=== PATIENT | female | born 1945 | race Caucasian/White ===

== ENCOUNTER 2019-03-22 22:57 | Emergency (ER) | payer OTHER, MEDICARE ==
[2019-03-22 23:02] VITALS: BMI 31.2
--- NOTE | 2019-03-22 23:08 | PDOC ---
History of Present Illness - General Chief Complaint: Pain Stated Complaint: LEFT WRIST SWELLING Time Seen by Provider: 03/22/19 23:02 History Source: Patient Exam Limitations: No Limitations - History of Present Illness Initial Comments: 03/22/19 23:20 This is a 73-year-old female who comes in with her for evaluation of left wrist pain. Patient said that her left wrist has been mildly swollen and bothering her for a couple weeks however this evening it suddenly became much worse, more painful with erythema and increase in warmth. Patient went to an urgent care center and was sent to the ED to rule out infection as she is a diabetic. Allergies: as per nursing notes Past Medical History: none Social history: Lives with family. No smoking. No alcohol. No illicit drugs. Surgical history: None General: No fevers or chills, no weakness, no weight loss HEENT: No change in vision. No sore throat,. No ear pain CardioVascular: no chest discomfort. No shortness of breath Respiratory:No cough, or wheezing. Gastrointestinal: no nausea, vomiting, diarrhea or constipation, No rectal bleeding Genitourinary: No dysuria, hematuria, or frequency Musculoskeletal: No joint or muscle pain or swelling Neurologic: No headache, vertigo, dizziness or loss of consciousness Psychiatric: nor depression Skin: No rashes or easy bruising Endocrine: no increased thirst or abnormal weight change Allergic: no skin or latex allergy All other systems reviewed and normal GENERAL: The patient is awake, alert, and fully oriented, in no acute distress. HEAD: Normal with no signs of trauma. EYES: Pupils equal, round and reactive to light, extraocular movements intact, sclera anicteric, conjunctiva clear. EXTREMITIES:atraumatic, Normal range of motion, no edema. Left wrist: There is some increase in warmth with some erythema and swelling. There is marked decreased range of motion secondary to pain and swelling. Neurovascular is intact. NEUROLOGICAL: Normal speech, normal gait. PSYCH: Normal mood, normal affect. SKIN: Warm, Dry, normal turgor, no rashes or lesions noted. 03/23/19 02:21 X-ray no acute pathology Assessment and plan: This is a 73-year-old female who comes in with left wrist pain. Patient denies any trauma. Patient's x-rays negative for any acute pathology. Patient given Toradol and started on antibiotics. Patient given Banken Zosyn here in the emergency department. Patient went in splint and given Dr. kimbrough to follow-up with. Patient discharged home Past History - Past Medical History Allergies/Adverse Reactions: Allergies Allergy/AdvReac Type Severity Reaction Status Date / Time Sulfa (Sulfonamide Allergy Severe Hives Verified 03/22/19 22:58 Antibiotics) COPD: No Diabetes: Yes HTN: Yes Thyroid Disease: Yes (Hypothyroid) - Suicide/Smoking/Psychosocial Hx Smoking History: Never smoked Have you smoked in the past 12 months: No Information on smoking cessation initiated: No Hx Alcohol Use: No Drug/Substance Use Hx: No *Physical Exam - Vital Signs Last Vital Signs Temp Pulse Resp BP Pulse Ox 97.7 F 87 18 135/74 99 03/22/19 22:59 03/22/19 22:59 03/22/19 22:59 03/22/19 22:59 03/22/19 22:59 ED Treatment Course - LABORATORY CBC & Chemistry Diagram: 03/23/19 00:30 03/23/19 00:30 *DC/Admit/Observation/Transfer Diagnosis at time of Disposition: Wrist pain, left - Discharge Dispostion Disposition: HOME Condition at time of disposition: Good Decision to Admit order: No - Referrals Referrals: Brandon Carrasco MD [Staff Physician] - - Patient Instructions Additional Instructions: For the pain take Tylenol or Motrin as directed on the bottle. Alternatively U can take Aleve 2 tablets twice a day if needed. For the infection take clindamycin 1 tablet twice a day for 7 days Wear the splint for additional comfort and follow-up with the orthopedist in the morning, Return to the emergency department immediately with ANY new, persistent or worsening symptoms. Continue any medications as previously prescribed by your physician. You should follow up with your primary doctor as soon as possible regarding today's emergency department visit. . Please make sure your doctor reviews the results of your emergency evaluation. Thank you for coming to the Emergency Department today for your care. It was a pleasure to see you today. Please note that your evaluation is INCOMPLETE until you follow-up with your doctor. - Post Discharge Activity Forms/Work/School Notes: Back to Work
[2019-03-22] MEDS ORDERED: KETOROLAC TROMETHAMINE 30 MG/1 ML VIAL IVPUSH ONE (23:09)
[2019-03-23] MEDS ORDERED: PIPERACILLIN/TAZOB 3.375 GM 3.375 GM in DEXTROSE 5%-WATER - 50 ML IVPB ONE (00:02)
[2019-03-23] MEDS ORDERED: VANCOMYCIN 1 GM in D5W (PRE-DOCKED) 1,000 MG/250 ML IVPB ONE (00:41)
[2019-03-23] MEDS ORDERED: VANCOMYCIN 1,000 MG VIAL (RESTRICTED TO ID ONLY) ONE (00:42)
[2019-03-23] MEDS ORDERED: PIPERACILLIN/TAZOBACTAM 3.375 GM VIAL IVPB ONE (00:42)
[2019-03-23] MEDS ORDERED: KETOROLAC TROMETHAMINE 30 MG/1 ML VIAL ONE (00:51)
[2019-03-23 01:21] LABS: BASO % 0.3 % (0-2.0); EOS % 0.9 % (0-4.5); HEMATOCRIT 40.9 % (32.4-45.2); HEMOGLOBIN 13.5 GM/dL (10.7-15.3); LYMPH % 33.3 % (8-40); MCH 29.8 pg (25.7-33.7); MEAN CELL VOLUME 90.2 fl (80-96); MEAN PLT VOLUME 9.8 fl (7.5-11.1); MONO % 8.9 % (3.8-10.2); NEUT % 56.6 % (42.8-82.8); PLATELET COUNT 174 K/MM3 (134-434); RBC 4.53 M/mm3 (3.60-5.2); RDW 15.1 % (11.6-15.6); WHITE BLOOD COUNT 6.9 K/mm3 (4.0-10.0)
[2019-03-23 01:40] LABS: ALBUMIN 3.5 g/dl (3.4-5.0); BILIRUBIN,TOTAL 0.4 mg/dL (0.2-1); BLOOD UREA NITROGEN 19.7 mg/dL (7-18); CALCIUM 8.9 mg/dL (8.5-10.1); CREATININE 0.4 mg/dL (0.55-1.3)
[2019-03-23 02:53] VITALS: BP 141/68; PULSE 69; TEMP 98.2
== END 2019-03-23 03:56 | disposition home or self-care (01) ==
LOC: FER 22:57
PROC: 3E03329 Introduction of Other Anti-infective into Peripheral Vein, Percutaneous Approach (ICD-10-PCS; principal; 2019-03-22)
PROC: 3E0333Z Introduction of Anti-inflammatory into Peripheral Vein, Percutaneous Approach (ICD-10-PCS; 2019-03-22)
PROC: 2W3DX1Z Immobilization of Left Lower Arm using Splint (ICD-10-PCS; 2019-03-22)
DX: M25.532 Pain in left wrist (principal)
CPT/HCPCS: 29126; 36415; 73110-TC-LT-FY; 80053; 85025; 87040; 96365; 96375; 99283-25